=== PATIENT | female | born 1990 | race African-American/Black ===

== ENCOUNTER 2021-11-20 07:16 | Outpatient (CLI) | payer BC | END 2021-11-20 07:17 | disposition home or self-care (01) | LOC: CSHLAB 07:16 | PROVIDERS: ATTEND Obstetrics & Gynecology | DX: Z01.812 Encounter for preprocedural laboratory examination (principal); Z20.822 Contact with and (suspected) exposure to COVID-19; D25.9 Leiomyoma of uterus, unspecified; Z53.9 Procedure and treatment not carried out, unspecified reason | CPT/HCPCS: 84703; 85027; 86850; 86900; 86901; 87811 ==

== ENCOUNTER 2021-11-25 11:02 | Day surgery (SDC) | payer BC ==
[2021-11-19 16:32] VITALS: BMI 37.8
[2021-11-20 08:38] LABS: Hemoglobin 11.7 g/dL (12.0-15.5); Mean Corpuscular HGB CONC 31.5 g/dL (32.0-36.0); Mean Corpuscular Hemoglobin 24.5 pg (27.0-33.0); Mean Platelet Volume 10.9 fl (7.4-10.4); Platelet Count 304 10x3/uL (150-450); RBC Distribution Width 15.9 % (11.5-14.5); Red Blood Cell (RBC) Count 4.77 10x6/uL (3.90-5.03); White Blood Cell (WBC) Count 6.9 10x3/uL (3.5-10.5)
[2021-11-20 09:00] LABS: BHCG - Serum Negative (NEGATIVE); Pregs Control Background? CLEAR/WHITE (CLR/WHITE); Pregs Control Bar Appear? YES (CONTROL BAR)
[2021-11-25] MEDS ORDERED: Bupivacaine PF 0.5% 30 ML VIAL ONE (11:18)
[2021-11-25] MEDS ORDERED: EPINEPHrine 1 MG/ML AMP ONE (11:18)
[2021-11-25] MEDS ORDERED: Lidocaine 1% MPF 2 ML VIAL ONE (11:34)
[2021-11-25] MEDS ORDERED: CeleCOXIB 100 MG CAP ONE (11:34)
[2021-11-25] MEDS ORDERED: Gabapentin 300 MG CAP ONE (11:34)
[2021-11-25] MEDS ORDERED: Famotidine/PF 20 mg/2ml Vial ONE (11:34)
[2021-11-25] MEDS ORDERED: CEFAZOLIN 2 GM VIAL ONE (12:11)
[2021-11-25] MEDS ORDERED: Lidocaine 1% PF 5 ML VIAL ONE (12:12)
[2021-11-25] MEDS ORDERED: Ondansetron PF 4 MG/2 ML Vial ONE (12:12)
[2021-11-25] MEDS ORDERED: Glycopyrrolate 0.2 MG/ML 5 ML SYRINGE ONE (12:12)
[2021-11-25] MEDS ORDERED: Rocuronium Bromide 10 MG/ML (10ML VIAL) ONE (12:12)
[2021-11-25] MEDS ORDERED: Midazolam HCl 2 mg/2 ml Vial ONE (12:12)
[2021-11-25] MEDS ORDERED: Fentanyl 250 MCG/5 ML VIAL ONE (12:12)
[2021-11-25] MEDS ORDERED: PROPOFOL 20 ML ONE (12:12)
[2021-11-25] MEDS ORDERED: Ketorolac Tromethamine 30 MG/ML VIAL ONE (12:13)
[2021-11-25] MEDS ORDERED: Lidocaine 4% PF 5 ML AMP ONE (12:14)
[2021-11-25] MEDS ORDERED: Meperidine HCl/PF 25 MG/ML VIAL ONE (13:42)
[2021-11-25] MEDS ORDERED: Fentanyl 100 MCG/2 ML VIAL ONE (13:50)
== END 2021-11-25 16:30 | disposition home or self-care (01) ==
LOC: CSHSDC 11:02
PROVIDERS: ATTEND Obstetrics & Gynecology
PROC: 8E0W4CZ Robotic Assisted Procedure of Trunk Region, Percutaneous Endoscopic Approach (ICD-10-PCS; principal; 2021-11-25)
PROC: 0UT74ZZ Resection of Bilateral Fallopian Tubes, Percutaneous Endoscopic Approach (ICD-10-PCS; principal; 2021-11-25)
PROC: 0UT94ZZ Resection of Uterus, Percutaneous Endoscopic Approach (ICD-10-PCS; principal; 2021-11-25)
DX: D25.9 Leiomyoma of uterus, unspecified (principal); N83.8 Other noninflammatory disorders of ovary, fallopian tube and broad ligament; K66.0 Peritoneal adhesions (postprocedural) (postinfection); Z20.822 Contact with and (suspected) exposure to COVID-19
CPT/HCPCS: 84703; 85027; 86850; 86900; 86901; 87811; 88307; C1776; J0171; J0690; J1885; J2175; J2250; J2405; J2704; J3010; S0020; S0028